=== PATIENT | male | born 1995 | race Caucasian/White ===

== ENCOUNTER 2021-05-02 22:05 | Emergency (ER) | payer SELFPAY ==
[~2021-05-02] VITALS: Ht 167.6 cm; Wt 68.9 kg
[2021-05-02 22:07] VITALS: BP 123/75
--- NOTE | 2021-05-02 22:49 | NUR ---
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
== END 2021-05-02 22:45 | disposition left against medical advice (07) ==
LOC: ER 22:06
DX: K22.2 Esophageal obstruction (principal); Z98.890 Other specified postprocedural states
CPT/HCPCS: 99281